=== PATIENT | female | born 1965 | race Caucasian/White ===

== ENCOUNTER 2016-09-21 21:21 | Emergency (ER) | payer MEDICAID ==
[~2016-09-21] VITALS: Ht 152.4 cm; Wt 74.8 kg
[2016-09-21 21:36] VITALS: BP 117/73
--- NOTE | 2016-09-21 23:19 | NUR ---
PT TAKEN TO CT FROM THE LOBBY
--- NOTE | 2016-09-21 23:30 | NUR ---
PT RETURN FROM CT TO LOBBY
--- NOTE | 2016-09-21 23:56 | NUR ---
PT TAKEN TO BED 4
--- NOTE | 2016-09-22 00:05 | NUR ---
PATIENT PRESENTS TO ED WITH C/O LEFT FLANK PAIN . PT DENIES N/V/D; SKIN IS PINK/WARM/DRY; AAOX4 WITH EVEN AND STEADY GAIT; LUNGS CLEAR BL; HR EVEN AND REGULAR; PT DENIES ANY FEVER, CP, SOB, OR COUGH AT THIS TIME; PATIENT STATES PAIN OF 7/10 AT THIS TIME; VSS; PATIENT POSITIONED FOR COMFORT; HOB ELEVATED; BEDRAILS UP X2; BED DOWN. ER MD MADE AWARE OF PT STATUS.
--- NOTE | 2016-09-22 00:13 | NUR ---
Dr. Bustos evaluating patient at bedside.
[2016-09-22 01:28] VITALS: BP 113/70
--- NOTE | 2016-09-22 01:29 | NUR ---
Patient discharged with v/s stable. Written and verbal after care instructions given and explained. Patient alert, oriented and verbalized understanding of instructions. Ambulatory with steady gait. All questions addressed prior to discharge. ID band removed. Patient advised to follow up with PMD. Rx of TRAMADOL 50MG given. Patient educated on indication of medication including possible reaction and side effects. Opportunity to ask questions provided and answered.
== END 2016-09-22 01:29 | disposition home or self-care (01) ==
LOC: MED 21:21
DX: R10.12 Left upper quadrant pain (principal); R30.0 Dysuria
CPT/HCPCS: 81002; 81025; 99284

== ENCOUNTER 2021-06-17 14:23 | Emergency (ER) | payer MEDICAID ==
[~2021-06-17] VITALS: Ht 144.8 cm; Wt 72.1 kg
[2021-06-17 14:36] VITALS: BP 148/85
--- NOTE | 2021-06-17 14:45 | NUR ---
Patient ambulated to chair D.
[2021-06-17] MEDS ORDERED: KETOROLAC 30 MG/ML VIAL IM ONE (15:00)
[2021-06-17] MEDS ORDERED: NAPR-54 PO ×2 (15:08→18:45)
[2021-06-17] MEDS ORDERED: CYCL-711 PO ×2 (15:08→18:45)
--- NOTE | 2021-06-17 15:08 | NUR ---
55 y/o F BIB daughter c/o left knee pain x 2 weeks. Patient A&Ox4, ambulatory, states acute onset of L knee pain; 09/29, sharp/intermittent, radiating up to left hip. Worsens with ambulating; alleviates with rest. Patient reports Ibuprofen 800mg at 0700 today with minor relief to symptoms. Denies other medical complaints. Denies trauma, fall, injury. Pt in chair D. PMH/Sx/Meds: kidney stone removal NKDA
[2021-06-17 15:26] VITALS: BP 136/75
--- NOTE | 2021-06-17 15:26 | NUR ---
Patient discharged with v/s stable. Written and verbal after care instructions given FOR [facility]AT[facility] and explained. Patient alert, oriented and verbalized understanding of instructions. Ambulatory with steady gait. All questions addressed prior to discharge. ID band removed. Patient advised to follow up with PMD. Rx of FLEXERIL AND NAPROXEN given. Patient educated on indication of medication including possible reaction and side effects. Opportunity to ask questions provided and answered.
== END 2021-06-17 15:26 | disposition home or self-care (01) ==
LOC: MED 14:23
DX: M79.605 Pain in left leg (principal); M54.32 Sciatica, left side; E11.9 Type 2 diabetes mellitus without complications
CPT/HCPCS: 96372; 99283; J1885

== ENCOUNTER 2022-07-22 18:46 | Emergency (ER) | payer MEDICAID, OTHER ==
[~2022-07-22] VITALS: Ht 152.4 cm; Wt 68.9 kg
[~2022-07-22 18:46] MED LIST: CYCL-711 PO; NAPR-54 PO
[2022-07-22 18:56] VITALS: BP 144/92
--- NOTE | 2022-07-22 19:45 | NUR ---
URINE WALKED TO LAB.
[2022-07-22 19:51] LABS: BASOPHILS % (AUTO) 0.2 % (0.0-2.0); EOSINOPHILS % (AUTO) 0.4 % (0.0-4.0); HEMATOCRIT 42.7 % (36-48); HEMOGLOBIN 14.7 g/dL (12.0-16.0); LYMPHOCYTES # (AUTO) 0.3 K/uL (2.5-16.5); LYMPHOCYTES % (AUTO) 5.3 % (20.5-51.1); MEAN CORPUSCULAR HEMOGLOBIN 30 pg (27-31); MEAN CORPUSCULAR HGB CONC 34 g/dL (33-37); MEAN CORPUSCULAR VOLUME 87.1 fL (80-94); MONOCYTES # (AUTO) 0.2 K/uL (0.8-1.0); MONOCYTES % (AUTO) 2.8 % (1.7-9.3); NEUTROPHILS # (AUTO) 5.9 K/uL (1.8-7.7); NEUTROPHILS % (AUTO) 91.3 % (42.2-75.2); PLATELET COUNT (AUTO) 198 K/uL (140-450); RED BLOOD CELL COUNT(AUTO) 4.91 MIL/uL (4.20-5.40); RED CELL DISTRIBUTION WIDTH 14.3 % (11.6-13.7); WHITE BLOOD COUNT (AUTO) 6.5 K/uL (4.8-10.8)
[2022-07-22 19:56] LABS: BILIRUBIN,URINE 1+ (NEGATIVE); BLOOD, URINE 3+ (NEGATIVE); LEUKOCYTE ESTERASE ,URINE TRACE (NEGATIVE); NITRITE, URINE NEGATIVE (NEGATIVE); UGLUCOSE NEGATIVE (NEGATIVE)
[2022-07-22 20:00] LABS: APPEARANCE,URINE HAZY (CLEAR); COLOR,URINE YELLOW (YELLOW)
--- NOTE | 2022-07-22 20:05 | NUR ---
SEEN AND EXAMINED BY YENI WITH ORDERS AND CARRIED OUT
[2022-07-22] MEDS ORDERED: ONDANSETRON 4 MG ODT PO ONE (20:10)
[2022-07-22 20:12] LABS: ALBUMIN 3.9 g/dL (3.4-5.0); ANION GAP 12.1 (8-16); CARBON DIOXIDE 28.5 mmol/L (21-32); CREATININE 0.8 mg/dL (0.6-1.3); POTASSIUM 3.6 mmol/L (3.5-5.1); TOTAL BILIRUBIN 0.7 mg/dL (0.0-1.0)
[2022-07-22 20:23] LABS: RBC,URINE 11-20 (MOD) /HPF (0-5); WBC,URINE 0-5 /HPF (0-5)
[2022-07-22] MEDS ORDERED: ONDA-188 SL (22:39)
[2022-07-22 23:06] VITALS: BP 144/92
--- NOTE | 2022-07-22 23:08 | NUR ---
Patient discharged with v/s stable. Written and verbal after care instructions given and explained. New rx ayahfrstefania. Patient verbalized understanding. Ambulatory with steady gait. All questions addressed prior to discharge. Advised to follow up with PMD.
== END 2022-07-22 23:08 | disposition home or self-care (01) ==
LOC: MED 18:46
DX: K52.9 Noninfective gastroenteritis and colitis, unspecified (principal); E11.9 Type 2 diabetes mellitus without complications; I10 Essential (primary) hypertension; Z79.4 Long term (current) use of insulin; Z79.899 Other long term (current) drug therapy; Z90.49 Acquired absence of other specified parts of digestive tract
CPT/HCPCS: 36415; 74176; 80053; 81001; 83690; 85025; 99284; Q0162

== ENCOUNTER 2023-12-20 22:45 | Emergency (ER) | payer MEDICAID, OTHER ==
[~2023-12-20] VITALS: Ht 152.4 cm; Wt 68.9 kg
[~2023-12-20 22:45] MED LIST changes: +NAPR-337 PO; -NAPR-54 PO; +ONDA-188 SL
[2023-12-20 23:10] VITALS: BP 179/83; PULSE 85; RESP 16; TEMP 98.2; O2SAT 98
[2023-12-20 23:49] VITALS: TEMP 98.2
[2023-12-21 01:07] LABS: BASOPHILS % (AUTO) 0.5 % (0.0-2.0); EOSINOPHILS # (AUTO) 0.1 K/uL (0-0.4); EOSINOPHILS % (AUTO) 0.8 % (0.0-4.0); HEMATOCRIT 39.8 % (36-48); HEMOGLOBIN 13.5 g/dL (12.0-16.0); LYMPHOCYTES # (AUTO) 1.6 K/uL (2.5-16.5); LYMPHOCYTES % (AUTO) 18.2 % (20.5-51.1); MEAN CORPUSCULAR HEMOGLOBIN 30 pg (27-31); MEAN CORPUSCULAR HGB CONC 34 g/dL (33-37); MEAN CORPUSCULAR VOLUME 89.2 fL (80-94); MONOCYTES # (AUTO) 0.6 K/uL (0.8-1.0); MONOCYTES % (AUTO) 6.5 % (1.7-9.3); NEUTROPHILS # (AUTO) 6.3 K/uL (1.8-7.7); PLATELET COUNT (AUTO) 224 K/uL (140-450); RED BLOOD CELL COUNT(AUTO) 4.46 MIL/uL (4.20-5.40); RED CELL DISTRIBUTION WIDTH 13.8 % (11.6-13.7); WHITE BLOOD COUNT (AUTO) 8.6 K/uL (4.8-10.8)
[2023-12-21 01:29] LABS: CALCIUM 9.7 mg/dL (8.5-10.1); CARBON DIOXIDE 26.5 mmol/L (21-32); CHLORIDE 103 mmol/L (98-107); CREATININE 0.7 mg/dL (0.6-1.3); GFR ARICAN-AMERICAN 111 mL/min (>90); GFR NON ARICAN-AMERICAN 92 mL/min (>90); GLUCOSE 140 mg/dL (74-106); POTASSIUM 3.5 mmol/L (3.5-5.1); SODIUM SERUM 137 mmol/L (136-145); UREA NITROGEN, BLOOD 13 mg/dL (7-18)
[2023-12-21 01:32] LABS: ALBUMIN 3.7 g/dL (3.4-5.0)
[2023-12-21 01:57] LABS: ALANINE AMINOTRANSFERASE 64 U/L (12-78); ALKALINE PHOSPHATASE 156 U/L (50-136); ASPARTATE AMINOTRANSFERASE 51 U/L (15-37); LIPASE 43 U/L (16-77); TOTAL BILIRUBIN 0.4 mg/dL (0.0-1.0)
[2023-12-21] MEDS: KETOROLAC 30 MG/ML VIAL IM ONE (02:52)
[2023-12-21 04:39] VITALS: BP 130/61; PULSE 71; RESP 16; O2SAT 98
== END 2023-12-21 04:42 | disposition home or self-care (01) ==
LOC: MED 22:45
DX: R07.89 Other chest pain (principal); K21.9 Gastro-esophageal reflux disease without esophagitis; I10 Essential (primary) hypertension; Z79.899 Other long term (current) drug therapy
CPT/HCPCS: 36415; 71045; 80053; 83690; 84484; 85025; 93005; 99285; Q0092; J1885